=== PATIENT | female | born 1955 | race Caucasian/White ===

== ENCOUNTER 2020-08-10 23:08 | IRF | payer MEDICARE, MEDICAID, SELFPAY ==
--- NOTE | ~2020-08-10 | US_ITS ---
EXAMINATION: US carotid duplex BI DATE: 08/20/2020 14:47 INDICATION: Right carotid bruit. TECHNIQUE: Grayscale, color Doppler, and pulsed Doppler images of the cervical carotid arteries were obtained. The degree of vessel stenosis is placed in one of the following categories: normal, <50%, 5 0-69%, >=70% but less than near-occlusion, near-occlusion, or total occlusion. Note that percent sten osis relative to normal distal artery lumen diameter is indirectly measured from velocity measurement s as described by Davis, et al. Radiology 2003; 229:340-346. COMPARISON: None. FINDINGS: RIGHT: There is a graft or stent of right common carotid artery. The right common carotid artery (CCA) peak systolic velocity (PSV) is 38 cm/s. The right internal carotid artery (ICA) PSV is 146 cm/s. The righ t ICA end-diastolic velocity (EDV) is 27 cm/s. The right ICA/CCA PSV ratio is 3.9. Shadowing obscures the vessel lumen in proximal ICA. There is antegrade flow in the right vertebral artery. LEFT: The left CCA PSV is 99 cm/s. The left ICA PSV is 174 cm/s. The left ICA EDV is 37 cm/s. The left ICA/ CCA PSV ratio is 1.8. Grayscale and color Doppler images yield an estimate of >=50% diameter reductio n from plaque in the ICA. There is antegrade flow in the left vertebral artery. IMPRESSION: 1. 50-69% stenosis in the right internal carotid artery. 2. 50-69% stenosis in the left internal carotid artery. Reviewed, dictated and finalized at location A.
--- NOTE | 2020-08-10 22:59 | ADMGEN ---
This patient, Arianne Jacinto, was admitted to [facility] Room 223-02. Patient/family oriented to hospital policies and general routines including ID bracelet, bed and alarms, visiting hours, pain management, procedures, bathroom and other care routines, personal items, smoking policy, room service/diet, and visiting hours. Information on how to activate the Rapid Response Team has been discussed. Patient/Family are encouraged to report perceived risks to care and to ask questions if they do not understand what they are told or what they should do.
[2020-08-11 01:17] VITALS: BMI 25.4
[2020-08-11] MEDS: oxyCODONE HCL (*CRX) 5 MG TAB IR PO ×3 (05:06→21:21)
[2020-08-11 05:42] LABS: Basophils Absolute Auto 0.1 K/mm3 (0.0-0.1); Basophils Percent Auto 0.5 % (0.2-1.2); Eosinophils Absolute Auto 0.4 K/mm3 (0-0.3); Eosinophils Percent Auto 3.1 % (0-4.4); Hematocrit 31.7 % (37.0-47.0); Immature Granulocyte Absolute 0.28 K/mm3 (0.00-0.031); Immature Granulocyte Percent A 2.2 % (0-0.5); Lymphocytes Absolute Auto 2.84 K/mm3 (0.9-3.2); Mean Corpuscular HGB Conc 31.5 g/dl (32-36); Mean Corpuscular Hemoglobin 27.7 pg (26-34); Mean Corpuscular Volume 87.8 fl (80-100); Mean Platelet Volume 12.5 fl (7.4-10.4); Monocytes Absolute Auto 1.7 K/mm3 (0.1-0.6); Neutrophils Absolute Auto 7.6 K/mm3 (1.3-6.7); Neutrophils Percent Auto 59.2 % (45.5-73.1); Platelet Count Result 323 k/mm3 (150-375); Red Blood Count 3.61 M/mm3 (4.2-5.4); Red Cell Distribution Width 19.9 % (11.5-14.5); White Blood Count 12.9 K/mm3 (4.5-10.0)
[2020-08-11 05:50] LABS: Alanine Aminotransferase 40 U/L (4-35); Alkaline Phosphatase 92 U/L (38-126); Anion Gap 3 mmol/L (8-16); Aspartate Amino Transferase 51 U/L (14-36); Bilirubin,Total 0.2 mg/dL (0.2-1.3); Blood Urea Nitrogen 15 mg/dL (7-17); Carbon Dioxide 26 mmol/L (22-30); Chloride 111 mmol/L (98-107); Estimated CRCL calculation 40 ml/min; Estimated Glomerular Filt Rate > 60; Glucose 88 mg/dL (65-105); Potassium 3.6 mmol/L (3.4-5.0); Sodium 140 mmol/L (137-145)
[2020-08-11 06:00] VITALS: BP 138/61; PULSE 93; RESP 18; TEMP 36.6; O2SAT 96
[2020-08-11 06:30] LABS: Anisocytosis 1+ (NORMAL); Hypochromasia 1+ (NORMAL); Ovalocytes 1+ (NORMAL); Platelet Estimate Adequate (Adequate)
[2020-08-11] MEDS: ACETAMINOPHEN 500 MG TABLET PO ×3 (07:14→21:27)
[2020-08-11] MEDS: GABAPENTIN 300 MG CAPSULE PO ×3 (07:15→21:17)
[2020-08-11 08:57] VITALS: PULSE 93
[2020-08-11] MEDS: APIXABAN 5 MG TABLET PO ×2 (08:57→16:02)
[2020-08-11] MEDS: lisinopriL 2.5 MG TABLET PO (08:57)
[2020-08-11] MEDS: carvediloL 6.25 MG TABLET PO ×2 (08:57→16:02)
[2020-08-11] MEDS: ASPIRIN 81 MG ENTERIC TABLET PO (08:57)
[2020-08-11] MEDS: DICLOFENAC SOD 75 MG TABLET.EC PO (08:57)
[2020-08-11] MEDS: SENNA/DOCUSATE SODIUM TABLET 1 TAB PO ×2 (08:58→16:02)
[2020-08-11] MEDS: DULoxetine HCL 30 MG CAPSULE.DR PO (09:08)
[2020-08-11 12:00] VITALS: BMI 25.4
--- NOTE | 2020-08-11 13:32 | WPDREHABHP ---
H&P: HPI History of Present Illness Date/Time: 08/11/20 13:32 Chief Complaint: L aka Narrative: HISTORY OF PRESENT ILLNESS: The patient's primary rehab impairment category is amputation lower extremity The etiologic diagnosis is critical left limb ischemia I saw this patient [id number] on 08/11/2020 The patient is a 64-year-old female with past medical history of hypertension, hyperlipidemia, chronic kidney disease, coronary artery disease, congestive heart failure, prior CVA, peripheral vascular disease, peripheral neuropathy, claudication, bilateral carotid stenosis, CSF leak, TIA, [place], hepatitis C, and Takayasu arteritis who presented to [facility] on 08/05/2020 with critical limb ischemia. On arrival the patient had no sensation to her left leg below the knee. Left foot was cold and mottled. CTA showed multiple occlusions on the left lower extremity. CT showed ischemic colitis. Patient underwent a left above knee amputation on 08/05/2020y Vascular Postoperatively the patient experienced elevated troponins, acute postop pain, acute blood loss anemia, acute respiratory failure, chronic ischemic colitis, and hypocalcemia. Cardiology determined the elevated troponins were due to demand ischemia in the setting of dehydration and anemia. She was to continue on her Coreg. A TTE showed no changes. Acute postop pain was managed with or oral analgesics. Acute blood loss with stable the hemoglobin of 9. Acute respiratory failure resolved following administration of Lasix and was on 1 L oxygen but was able to wean off. General surgery was consulted for ischemic colitis and recommended conservative management with IV antibiotics and fluid she had completed a course of cefepime and Flagyl and IV antibiotics were discontinued. Patient will be discharged to rehab on Eliquis and aspirin for prophylaxis and to remain on this medications. The patient was on isolation bars for MRSA in 2017 for the LLENayely Knox nurse practitioner of vascular department phones #[phone] Therapy was initiated at the acute care facility and the patient transferred to us from [facility] on 08/10/2020 FALLS OR SURGERIES: The patient has had major surgeries ( left AKA)in the 100 days prior to admission. the patient has had 2 falls in the last 6 months. The patient has not had falls which incurred injury in the past year. PRIOR LEVEL OF FUNCTION: Eating was [INDEPENDENT] Oral Care was [INDEPENDENT] Toileting Hygiene was [INDEPENDENT] Shower/Bathing was [INDEPENDENT] Upper Body Dressing was [INDEPENDENT] Lower Body Dressing was [INDEPENDENT] Donning/Statham Footwear was [INDEPENDENT] Rolling Left and Right was [INDEPENDENT] Sit to Lying was [INDEPENDENT] Lying to Sitting was [INDEPENDENT] Sit to Stand was [INDEPENDENT] Bed to Chair Transfers was [INDEPENDENT] Toilet Transfers was [INDEPENDENT] Walking was [INDEPENDENT] [>500 feet] with [NO DEVICE] Wheelchair Mobility was [NOT APPLICABLE PRIOR TO ADMISSION] Stairs were [INDEPENDENT] CURRENT LEVEL OF FUNCTION: Eating was setup or clean-up assistance Oral Care was partial to moderate assist Toileting Hygiene was partial to moderate assist Shower/Bathing was partial to moderate assist Upper Body Dressing was partial to moderate assist Lower Body Dressing was partial to moderate assist Donning/Statham Footwear was partial to moderate assist Rolling Left and Right was supervision or touching assist Sit to Lying was supervision or touching assist Lying to Sitting was partial to moderate assist Sit to Stand was partial to moderate assist Bed to Chair Transfers were partial to moderate assist Toilet Transfers were partial to moderate assist Walking was 9 ft with a rolling and partial to moderate assistances Wheelchair Mobility was not tested Stairs were not tested GOALS: Our therapists will evaluate the patient and establish the goals. However, upon pr
[2020-08-11 14:00] VITALS: BP 131/50; PULSE 89; RESP 18; TEMP 36.2; O2SAT 98
--- NOTE | 2020-08-11 14:09 | PCNSR ---
On 08/11/20, the student, Rosa M Palomares, provided care and completed [facility] documentation on this patient. I have reviewed the student's documentation and agree with the findings.
[2020-08-11 16:02] VITALS: PULSE 89
[2020-08-11 20:50] VITALS: BP 129/56; PULSE 87; RESP 16; TEMP 36.2; O2SAT 96
[2020-08-11] MEDS: ATORVASTATIN 40 MG TABLET PO (21:14)
[2020-08-11] MEDS: cilostazoL 100 MG TABLET PO (21:17)
[2020-08-12] VITALS (9 sets, daily range): BP systolic 99–133; BP diastolic 54–67; PULSE 77–90; RESP 16–20; TEMP 36.2–36.5; O2SAT 97–99
[2020-08-12] MEDS: GABAPENTIN 300 MG CAPSULE PO ×3 (06:06→20:51)
[2020-08-12] MEDS: oxyCODONE HCL (*CRX) 5 MG TAB IR PO ×3 (06:34→18:54)
[2020-08-12] MEDS: ACETAMINOPHEN 500 MG TABLET PO ×3 (06:35→18:55)
[2020-08-12] MEDS: CHOLECALCIFEROL 1,000 UNITS TABLET 1000 UNITS PO (08:33)
[2020-08-12] MEDS: carvediloL 6.25 MG TABLET PO ×2 (08:33→17:14)
[2020-08-12] MEDS: ASPIRIN 81 MG ENTERIC TABLET PO (08:33)
[2020-08-12] MEDS: APIXABAN 5 MG TABLET PO ×2 (08:33→17:14)
[2020-08-12] MEDS: lisinopriL 2.5 MG TABLET PO (08:33)
[2020-08-12] MEDS: DULoxetine HCL 30 MG CAPSULE.DR PO (08:34)
[2020-08-12] MEDS: SENNA/DOCUSATE SODIUM TABLET 1 TAB PO ×2 (08:34→17:14)
[2020-08-12] MEDS: RANOLAZINE 500 MG TAB.ER.12H PO (08:35)
[2020-08-12] MEDS: MULTIVITAMINS THERAPEUTIC TAB (*BKC) 1 TABLET PO (08:35)
--- NOTE | 2020-08-12 12:23 | RPD ---
INDIVIDUALIZED PLAN OF CARE FOR Arianne Jacinto Brief Synthesis of Pre-Admission Screen, Post-Admission Evaluation and Therapy Evaluations: The patient presents to rehab with critical left limb ischemia. Comorbidities include status post left AKA, elevated troponin, acute postoperative pain, acute blood loss anemia, acute respiratory failure, chronic ischemic colitis, hypocalcemia, hypertension, hyperlipidemia, chronic kidney disease, coronary artery disease, congestive heart failure, peripheral vascular disease, neuropathy, claudication, bilateral carotid stenosis, TIA, myocardial infarction, hepatitis C, and Takayasu arteritis. The complexity of the patient's medical management, nursing, and therapy needs require an inpatient rehab hospital stay with a physician-led interdisciplinary team approach. The patient?s needs will be best met in an intensive program vs. at a lower level of care. The patient requires physician services for medical oversight, management of post-op complications (acute respiratory failure, acute blood loss anemia, chronic ischemic colitis, elevated troponin, hypocalcemia) in the setting of present comorbidities, and pain management. The patient requires nursing services for anticoagulation therapy, DVT prophylactics, infection protection, medication management and education, pressure relief, and wound care. The patient will be taught how to wrap the residual limb and how to monitor their skin for promotion of healing. Deficits include:ADLs, Balance, Endurance, Family Training/Education, Mobility, Pain Management, ROM, Safety, Strength, Transfers Survey Questionnaire Designer/Case Management for: Discharge Planning and Patient/Family Counseling Physical Therapy: 5 days per week for 90 minutes. Treatments may include: Therapeutic Exercise, Gait Training, Neuromuscular Re-education, Transfer Training, Community Reintegration, Bed Mobility, Patient/Family Education, Wheelchair Mobility Group Therapy/Concurrent Therapy Rationales: -Improve attention span during functional activities in a distracted environment. -Enhance problem solving and/or adequate judgment skills during functional activities in a distracted environment. -Promote increased safety awareness in a distracted environment to reduce fall risk with functional tasks, transfers, and ambulation to allow a more safe, self-sufficient return to the home environment. -Improve dynamic balance skills to promote safety and independence with functional activities in a distracted environment for maximum gain. Occupational Therapy: 5 days per week for 90 minutes. Treatments may include: Therapeutic Exercise, Therapeutic Activity, Cognitive Training, Self-Care Transfer Training, Community Reintegration, Home Management, Patient/Family Education, Wheelchair Mobility Training, Energy Conservation Training Group Therapy/Concurrent Therapy Rationales: -Allow therapist to observe and teach generalization and carry-over of skills learned in individual therapy. -Enhance problem solving and sequencing skills during therapeutic activities in a distracted environment. -Promote increased safety awareness in a realistic setting to reduce fall risk with functional tasks due to visual and verbal distractions. -Increase functional level with ADLs, ADL transfers and use of adaptive equipment through therapeutic activities with others while promoting safety to allow a more safe, self-sufficient return home. Medical Prognosis: Good Anticipated Length of Stay: 12 days Rehab Goals: Eating Goal: 06-Independent Oral Hygiene Goal: 06-Independent Toileting Hygiene Goal: 06-Independent Shower/Bathe Self Goal: 06-Independent Upper Body Dressing Goal: 06-Independent Lower Body Dressing Goal: 06-Independent Putting On/Taking Off Footwear Goal: 06-Independent Rolling Left and Right Goal: 06-Independent Sit to Lying Goal: 06-Independent Lying to Sitting on Side of Bed Goal: 06-Independent Sit to Stand Goal: 06-Independent Chair
--- NOTE | 2020-08-12 14:11 | WPDNEURORHBP ---
Subjective Date/time seen: 08/12/20 14:11 [facility] [place] [id number] Rehab History & PhysicalSigned Chief Complaint: Azra contreras The patient is a 64-year-old female with past medical history of hypertension, hyperlipidemia, chronic kidney disease, coronary artery disease, congestive heart failure, prior CVA, peripheral vascular disease, peripheral neuropathy, claudication, bilateral carotid stenosis, CSF leak, TIA, [place], hepatitis C, and Takayasu arteritis who presented to [facility] on 08/05/2020 with critical limb ischemia. On arrival the patient had no sensation to her left leg below the knee. Left foot was cold and mottled. CTA showed multiple occlusions on the left lower extremity. CT showed ischemic colitis. Patient underwent a left above knee amputation on 08/05/2020y Vascular Postoperatively the patient experienced elevated troponins, acute postop pain, acute blood loss anemia, acute respiratory failure, chronic ischemic colitis, and hypocalcemia. Cardiology determined the elevated troponins were due to demand ischemia in the setting of dehydration and anemia. She was to continue on her Coreg. A TTE showed no changes. Acute postop pain was managed with or oral analgesics. Acute blood loss was stable (hgb 9). Acute respiratory failure resolved following administration of Lasix and on 1 L oxygen but was able to wean off oxygen. General surgery was consulted for ischemic colitis and recommended conservative management with IV antibiotics and fluid She completed a course of cefepime and Flagyl and IV antibiotics were discontinued. Patient will be discharged to rehab on Eliquis and aspirin for prophylaxis and to remain on this medications. The patient was on isolation for MRSA in 2017 for the LLENayely Knox nurse practitioner of vascular department phones #[phone] Patient complains of pain but has been asleep numerous times throughout the day. Review of Systems Review of Systems: All systems reviewed & are unremarkable except as noted in HPI and below Functional Status Ambulation Ability Ability to Ambulate 10 Feet: Contact Guard Ambulation Assistive Devices: Walker, Wheeled Exam Narrative: Exam Narrative: Patient is alert and oriented x3. Speech is fluent. Heart rate and rhythm is regular. Lungs are clear to auscultation. Abdomen is soft nontender. Left stump reveals serosanguineous drainage. Objective Data Vital Signs Vital Signs: Vital Signs - 24 hr 08/11/20 16:02 08/11/20 20:50 08/12/20 06:00 Temperature 36.2 C L 36.5 C Pulse Rate 89 87 90 Respiratory Rate 16 16 Blood Pressure 129/56 L 102/61 Pulse Oximetry 96 97 08/12/20 08:00 08/12/20 08:33 08/12/20 13:39 Temperature 36.4 C L Pulse Rate 86 90 89 Respiratory Rate 20 16 Blood Pressure 99/54 L Pulse Oximetry 97 99 Intake/Output Intake/Output: Intake & Output 08/09/20 08/10/20 08/11/20 08/12/20 23:59 23:59 23:59 23:59 Intake Total 480 960 Balance 480 960 Meds/Results Medications: Active Medications Generic Name Dose Route Start Last Admin Trade Name Freq PRN Reason Stop Dose Admin Acetaminophen 500 mg 08/11/20 12:02 08/12/20 13:25 Acetaminophen 500 Mg Tablet PO 500 mg Q6H PRN Administration Mild Pain (1-3) or Fever Apixaban 5 mg 08/11/20 09:00 08/12/20 08:33 Apixaban 5 Mg Tablet PO 5 mg BID AJ Administration Aspirin 81 mg 08/11/20 09:00 08/12/20 08:33 Aspirin 81 Mg Enteric Tablet PO 81 mg QAM AJ Administration Atorvastatin Calcium 40 mg 08/11/20 21:00 08/11/20 21:14 Atorvastatin 40 Mg Tablet PO 40 mg HS AJ Administration Carvedilol 6.25 mg 08/11/20 17:00 08/12/20 08:33 Carvedilol 6.25 Mg Tablet PO 6.25 mg BID AJ Administration Cilostazol 100 mg 08/11/20 21:00 08/11/20 21:17 Cilostazol 100 Mg Tablet PO 100 mg HS AJ Administration Diclofenac Sodium 75 mg 08/11/20 12:03 Diclofenac Sod 75 Mg Ta
--- NOTE | 2020-08-12 15:04 | PCOTNOTE ---
Ms. Jacinto was evaluated for a tub transfer bench on 08/12/20 by this occupational therapist. The tub transfer bench will resolve that patient?s self-care limitations and will be used for ADL?s within the home. The patient is unable to step over edge of tub safely due to diagnosis of new LT above knee amputation complicated by h/o CVA, PVD, blind in LT eye, bilateral UE and LE neuropathy, CAD, DC, and chronic kidney disease. She is unable to tolerate standing while maintaining balance for completion of bathing. The patient can safely use the tub transfer bench and exhibits good understanding of safety with assisting patient with use. The tub transfer bench will allow for safety and independence with bathing in the patient's home.
[2020-08-12] MEDS: ATORVASTATIN 40 MG TABLET PO (20:51)
[2020-08-12] MEDS: cilostazoL 100 MG TABLET PO (20:51)
[2020-08-12] MEDS: DICLOFENAC SOD 75 MG TABLET.EC PO (20:55)
[2020-08-13 05:36] VITALS: BP 124/55; PULSE 77; RESP 16; TEMP 36.1; O2SAT 97
[2020-08-13] MEDS: GABAPENTIN 300 MG CAPSULE PO ×3 (06:02→20:24)
[2020-08-13 08:21] VITALS: PULSE 77
[2020-08-13] MEDS: APIXABAN 5 MG TABLET PO ×2 (08:21→17:53)
[2020-08-13] MEDS: carvediloL 6.25 MG TABLET PO ×2 (08:21→17:53)
[2020-08-13] MEDS: lisinopriL 2.5 MG TABLET PO (08:21)
[2020-08-13] MEDS: ASPIRIN 81 MG ENTERIC TABLET PO (08:21)
[2020-08-13] MEDS: CHOLECALCIFEROL 1,000 UNITS TABLET 1000 UNITS PO (08:21)
[2020-08-13] MEDS: SENNA/DOCUSATE SODIUM TABLET 1 TAB PO ×2 (08:21→17:52)
[2020-08-13] MEDS: RANOLAZINE 500 MG TAB.ER.12H PO (08:22)
[2020-08-13] MEDS: DULoxetine HCL 30 MG CAPSULE.DR PO (08:22)
[2020-08-13] MEDS: oxyCODONE HCL (*CRX) 5 MG TAB IR PO ×3 (08:22→20:18)
[2020-08-13] MEDS: MULTIVITAMINS THERAPEUTIC TAB (*BKC) 1 TABLET PO (08:22)
--- NOTE | 2020-08-13 09:10 | WPDNEURORHBP ---
Subjective Date/time seen: 08/13/20 09:10 Interval history: Chief Complaint: Azra contreras The patient is a 64-year-old female with past medical history of hypertension, hyperlipidemia, chronic kidney disease, coronary artery disease, congestive heart failure, prior CVA, peripheral vascular disease, peripheral neuropathy, claudication, bilateral carotid stenosis, CSF leak, TIA, [place], hepatitis C, and Takayasu arteritis who presented to [facility] on 08/05/2020 with critical limb ischemia. On arrival the patient had no sensation to her left leg below the knee. Left foot was cold and mottled. CTA showed multiple occlusions on the left lower extremity. CT showed ischemic colitis. Patient underwent a left above knee amputation on 08/05/2020y Vascular Postoperatively the patient experienced elevated troponins, acute postop pain, acute blood loss anemia, acute respiratory failure, chronic ischemic colitis, and hypocalcemia. Cardiology determined the elevated troponins were due to demand ischemia in the setting of dehydration and anemia. She was to continue on her Coreg. A TTE showed no changes. Acute postop pain was managed with or oral analgesics. Acute blood loss was stable (hgb 9). Acute respiratory failure resolved following administration of Lasix and on 1 L oxygen but was able to wean off oxygen. General surgery was consulted for ischemic colitis and recommended conservative management with IV antibiotics and fluid She completed a course of cefepime and Flagyl and IV antibiotics were discontinued. Patient will be discharged to rehab on Eliquis and aspirin for prophylaxis and to remain on this medications. The patient was on isolation for MRSA in 2017 for the LLENayely Knox nurse practitioner of vascular department phones #[phone] Arianne is proud of her accomplishments yesterday. Patient walked approximately 40 ft. Patient continues to complain of incisional pain and stump pain. Review of Systems Review of Systems: All systems reviewed & are unremarkable except as noted in HPI and below Functional Status Ambulation Ability Ability to Ambulate 10 Feet: Contact Guard Ambulation Assistive Devices: Walker, Wheeled Exam Narrative: Exam Narrative: Patient is alert and oriented x3. Speech is fluent. Heart rate and rhythm is regular. Lungs are clear to auscultation. Abdomen is soft nontender. Left stump reveals serosanguineous drainage. Edema is decreasing patient allows examiner to touch stump without pain today Objective Data Vital Signs Vital Signs: Vital Signs - 24 hr 08/12/20 13:39 08/12/20 17:12 08/12/20 17:14 Temperature 36.4 C L Pulse Rate 89 89 Respiratory Rate 16 Blood Pressure 99/54 L 110/64 Pulse Oximetry 99 08/12/20 18:55 08/12/20 20:00 08/12/20 21:29 Temperature 36.4 C L 36.2 C L Pulse Rate 77 77 Respiratory Rate 16 16 Blood Pressure 133/67 Pulse Oximetry 98 98 08/13/20 05:36 08/13/20 08:21 Temperature 36.1 C L Pulse Rate 77 77 Respiratory Rate 16 Blood Pressure 124/55 L Pulse Oximetry 97 Intake/Output Intake/Output: Intake & Output 08/10/20 08/11/20 08/12/20 08/13/20 23:59 23:59 23:59 23:59 Intake Total 480 1440 480 Balance 480 1440 480 Meds/Results Medications: Active Medications Generic Name Dose Route Start Last Admin Trade Name Freq PRN Reason Stop Dose Admin Acetaminophen 500 mg 08/11/20 12:02 08/12/20 18:55 Acetaminophen 500 Mg Tablet PO 500 mg Q6H PRN Administration Mild Pain (1-3) or Fever Apixaban 5 mg 08/11/20 09:00 08/13/20 08:21 Apixaban 5 Mg Tablet PO 5 mg BID AJ Administration Aspirin 81 mg 08/11/20 09:00 08/13/20 08:21 Aspirin 81 Mg Enteric Tablet PO 81 mg QAM AJ Administration Atorvastatin Calcium 40 mg 08/11/20 21:00 08/12/20 20:51 Atorvastatin 40 Mg Tablet PO 40 mg HS AJ Administration Carvedilol 6.25 mg 08/11/20 17:00 08/13/20 08:21 Carvedilol 6.25 Mg Tablet PO 6
[2020-08-13 14:00] VITALS: BP 118/53; PULSE 80; RESP 18; TEMP 36; O2SAT 95
[2020-08-13 17:53] VITALS: PULSE 80
[2020-08-13 20:00] VITALS: PULSE 80; RESP 18; O2SAT 95
[2020-08-13] MEDS: ATORVASTATIN 40 MG TABLET PO (20:18)
[2020-08-13] MEDS: cilostazoL 100 MG TABLET PO (20:18)
[2020-08-13] MEDS: ACETAMINOPHEN 500 MG TABLET PO (20:19)
[2020-08-13 21:46] VITALS: BP 114/57; PULSE 81; RESP 18; TEMP 37.1; O2SAT 98
[2020-08-14] MEDS: oxyCODONE HCL (*CRX) 5 MG TAB IR PO ×3 (04:48→21:07)
[2020-08-14] MEDS: GABAPENTIN 300 MG CAPSULE PO ×3 (05:15→21:10)
[2020-08-14 05:39] VITALS: BP 111/68; PULSE 89; RESP 18; TEMP 36.5; O2SAT 97
--- NOTE | 2020-08-14 08:33 | WPDNEURORHBP ---
Subjective Date/time seen: 08/14/20 08:33 Interval history: Chief Complaint: Azra contreras The patient is a 64-year-old female with past medical history of hypertension, hyperlipidemia, chronic kidney disease, coronary artery disease, congestive heart failure, prior CVA, peripheral vascular disease, peripheral neuropathy, claudication, bilateral carotid stenosis, CSF leak, TIA, [place], hepatitis C, and Takayasu arteritis who presented to [facility] on 08/05/2020 with critical limb ischemia. On arrival the patient had no sensation to her left leg below the knee. Left foot was cold and mottled. CTA showed multiple occlusions on the left lower extremity. CT showed ischemic colitis. Patient underwent a left above knee amputation on 08/05/2020y Vascular Postoperatively the patient experienced elevated troponins, acute postop pain, acute blood loss anemia, acute respiratory failure, chronic ischemic colitis, and hypocalcemia. Cardiology determined the elevated troponins were due to demand ischemia in the setting of dehydration and anemia. She was to continue on her Coreg. A TTE showed no changes. Acute postop pain was managed with or oral analgesics. Acute blood loss was stable (hgb 9). Acute respiratory failure resolved following administration of Lasix and on 1 L oxygen but was able to wean off oxygen. General surgery was consulted for ischemic colitis and recommended conservative management with IV antibiotics and fluid She completed a course of cefepime and Flagyl and IV antibiotics were discontinued. Patient will be discharged to rehab on Eliquis and aspirin for prophylaxis and to remain on this medications. The patient was on isolation for MRSA in 2017 for the LLENayely Knox nurse practitioner of vascular department phones #[phone] Patient continues to complain of incisional pain and stump pain. Arianne walked 50 feet yesterday. Review of Systems Review of Systems: All systems reviewed & are unremarkable except as noted in HPI and below Functional Status Ambulation Ability Ability to Ambulate 10 Feet: Minimum Assistance X 1 Ability to Ambulate 50 Feet With 2 Turns: Minimum Assistance X 1 Ambulation Assistive Devices: Walker, Wheeled Transfers Ability Ability to Transfer In/Out of Chair: Contact Guard Exam Narrative: Exam Narrative: Patient is alert and oriented x3. Speech is fluent. Heart rate and rhythm is regular. Lungs are clear to auscultation. Abdomen is soft nontender. Ampushield is on. Incision is not viewed today. Objective Data Vital Signs Vital Signs: Vital Signs - 24 hr 08/13/20 14:00 08/13/20 17:53 08/13/20 20:00 Temperature 36.0 C L Pulse Rate 80 80 80 Respiratory Rate 18 18 Blood Pressure 118/53 L Pulse Oximetry 95 95 08/13/20 21:46 08/14/20 05:39 Temperature 37.1 C 36.5 C Pulse Rate 81 89 Respiratory Rate 18 18 Blood Pressure 114/57 L 111/68 Pulse Oximetry 98 97 Intake/Output Intake/Output: Intake & Output 08/11/20 08/12/20 08/13/20 08/14/20 23:59 23:59 23:59 23:59 Intake Total 480 1440 960 Balance 480 1440 960 Meds/Results Medications: Active Medications Generic Name Dose Route Start Last Admin Trade Name Freq PRN Reason Stop Dose Admin Acetaminophen 500 mg 08/11/20 12:02 08/13/20 20:19 Acetaminophen 500 Mg Tablet PO 500 mg Q6H PRN Administration Mild Pain (1-3) or Fever Apixaban 5 mg 08/11/20 09:00 08/13/20 17:53 Apixaban 5 Mg Tablet PO 5 mg BID AJ Administration Aspirin 81 mg 08/11/20 09:00 08/13/20 08:21 Aspirin 81 Mg Enteric Tablet PO 81 mg QAM AJ Administration Atorvastatin Calcium 40 mg 08/11/20 21:00 08/13/20 20:18 Atorvastatin 40 Mg Tablet PO 40 mg HS AJ Administration Carvedilol 6.25 mg 08/11/20 17:00 08/13/20 17:53 Carvedilol 6.25 Mg Tablet PO 6.25 mg BID AJ Administration Cilostazol 100 mg 08/11/20 21:00 08/13/20 20:18 Cilostazol 100 Mg Tablet PO 100 mg HS AJ Admi
[2020-08-14] MEDS: carvediloL 6.25 MG TABLET PO ×2 (08:46→17:57)
[2020-08-14] MEDS: ASPIRIN 81 MG ENTERIC TABLET PO (08:46)
[2020-08-14] MEDS: DULoxetine HCL 30 MG CAPSULE.DR PO (08:46)
[2020-08-14] MEDS: lisinopriL 2.5 MG TABLET PO (08:46)
[2020-08-14] MEDS: CHOLECALCIFEROL 1,000 UNITS TABLET 1000 UNITS PO (08:46)
[2020-08-14] MEDS: MULTIVITAMINS THERAPEUTIC TAB (*BKC) 1 TABLET PO (08:46)
[2020-08-14] MEDS: APIXABAN 5 MG TABLET PO ×2 (08:47→17:57)
[2020-08-14] MEDS: RANOLAZINE 500 MG TAB.ER.12H PO (08:47)
[2020-08-14] MEDS: SENNA/DOCUSATE SODIUM TABLET 1 TAB PO ×2 (08:47→17:57)
[2020-08-14 14:00] VITALS: BP 133/50; PULSE 84; RESP 18; TEMP 36.3; O2SAT 98
[2020-08-14 17:57] VITALS: PULSE 84
[2020-08-14 21:05] VITALS: BP 133/56; PULSE 80; RESP 16; TEMP 36.2; O2SAT 99
[2020-08-14] MEDS: ACETAMINOPHEN 500 MG TABLET PO (21:08)
[2020-08-14] MEDS: cilostazoL 100 MG TABLET PO (21:09)
[2020-08-14] MEDS: ATORVASTATIN 40 MG TABLET PO (21:10)
[2020-08-15] VITALS (8 sets, daily range): BP systolic 110–150; BP diastolic 54–63; PULSE 76–83; RESP 16; TEMP 36–36.6; O2SAT 95–98
[2020-08-15] MEDS: GABAPENTIN 300 MG CAPSULE PO ×3 (06:06→21:34)
[2020-08-15] MEDS: oxyCODONE HCL (*CRX) 5 MG TAB IR PO ×4 (06:12→21:57)
[2020-08-15] MEDS: ACETAMINOPHEN 500 MG TABLET PO ×3 (06:13→18:07)
[2020-08-15] MEDS: ASPIRIN 81 MG ENTERIC TABLET PO (08:21)
[2020-08-15] MEDS: CHOLECALCIFEROL 1,000 UNITS TABLET 1000 UNITS PO (08:21)
[2020-08-15] MEDS: APIXABAN 5 MG TABLET PO ×2 (08:21→17:14)
[2020-08-15] MEDS: lisinopriL 2.5 MG TABLET PO (08:22)
[2020-08-15] MEDS: MULTIVITAMINS THERAPEUTIC TAB (*BKC) 1 TABLET PO (08:22)
[2020-08-15] MEDS: DULoxetine HCL 30 MG CAPSULE.DR PO (08:22)
[2020-08-15] MEDS: SENNA/DOCUSATE SODIUM TABLET 1 TAB PO ×2 (08:22→17:14)
[2020-08-15] MEDS: RANOLAZINE 500 MG TAB.ER.12H PO (08:22)
[2020-08-15] MEDS: carvediloL 6.25 MG TABLET PO ×2 (08:22→17:14)
--- NOTE | 2020-08-15 09:27 | PCPTNOTE ---
Arianne Jacinto was evaluated for a wheeled walker on 08/15/2020 by this physical therapist mail handler assistant. The wheeled walker will resolve patient's mobility limitations and will be used for ADL's within the home. The patient can safely use the wheeled walker. ?The wheeled walker will resolve the patient?s mobility deficits, including decreased balance, endurance, strength, and non weight bearing on Left Lower Extremity. Chiara Paniagua, IMAGE PROCESSING ENGINEER
--- NOTE | 2020-08-15 09:39 | PCPTNOTE ---
Chiara Paniagua PTA completed an inpatient rehab wheelchair evaluation on Arianne Jacinto on 08/15/2020. The patient is unable to safely and independently ambulate household distances due to their current impairments. Their diagnosis is L AKA and their impairments include decreased strength, decreased endurance, decreased range of motion, decreased balance, lower extremity weakness. Arianne's weight bearing status is non weight-bearing on LEFT lower leg. The patient demonstrates significant functional mobility limitations that impair their ability to participate in mobility-related activities of daily living (MRADLs), including toileting, feeding, dressing, grooming, and bathing in the customary locations in the home. These limitations cannot be sufficiently resolved by the use of an appropriately fitted cane or walker. It is recommended that the patient utilize a wheelchair for functional mobility within the home in order to facilitate optimal safety, independence and participation in all MRADL's and adequately access their home environment on a regular basis. The patient's home provides adequate access between rooms, maneuvering space, and surfaces to accommodate the recommended wheelchair. The use of a wheelchair for functional mobility is strongly recommended and the patient is receptive to using the wheelchair. The use of this wheelchair will significantly improve the patient's ability to participate in MRADLS and the patient will use it on a regular basis in the home. This will facilitate optimal safety, independence, and participation. The patient has demonstrated sufficient physical and mental capabilities needed to safely propel a manual wheelchair that is provided in the home during a typical day. Recommended Wheelchair Frame: STANDARD Recommended Wheelchair Size: 18 X 18 Recommended Wheelchair Cushion: STANDARD Wheelchair Leg Recommendations: LEFT RESIDUAL LIMB SUPPORT LEG REST, RIGHT SWING AWAY LEG REST -Anti-tippers are recommended due to patient demonstrating increased risk for falls. They would benefit from anti-tippers with added safety and stabilization. -Adjustable arm height is recommended because the patient requires an arm height that is different than that which is available using non-adjustable arms. The patient spends at least 2 hours per day in the wheelchair. Chiara Paniagua PTA 08/15/20 Evaluating Therapist Date I agree with and certify that the above recommendation is medically necessary. Referring Physician Date I agree with and certify that the above recommendation is medically necessary. Referring Physician Date
--- NOTE | 2020-08-15 10:14 | WPDNEURORHBP ---
Subjective Date/time seen: 08/15/20 10:14 Interval history: Chief Complaint: Azra contreras The patient is a 64-year-old female with past medical history of hypertension, hyperlipidemia, chronic kidney disease, coronary artery disease, congestive heart failure, prior CVA, peripheral vascular disease, peripheral neuropathy, claudication, bilateral carotid stenosis, CSF leak, TIA, [place], hepatitis C, and Takayasu arteritis who presented to [facility] on 08/05/2020 with critical limb ischemia. On arrival the patient had no sensation to her left leg below the knee. Left foot was cold and mottled. CTA showed multiple occlusions on the left lower extremity. CT showed ischemic colitis. Patient underwent a left above knee amputation on 08/05/2020y Vascular Postoperatively the patient experienced elevated troponins, acute postop pain, acute blood loss anemia, acute respiratory failure, chronic ischemic colitis, and hypocalcemia. Cardiology determined the elevated troponins were due to demand ischemia in the setting of dehydration and anemia. She was to continue on her Coreg. A TTE showed no changes. Acute postop pain was managed with or oral analgesics. Acute blood loss was stable (hgb 9). Acute respiratory failure resolved following administration of Lasix and on 1 L oxygen but was able to wean off oxygen. General surgery was consulted for ischemic colitis and recommended conservative management with IV antibiotics and fluid She completed a course of cefepime and Flagyl and IV antibiotics were discontinued. Patient will be discharged to rehab on Eliquis and aspirin for prophylaxis and to remain on this medications. The patient was on isolation for MRSA in 2017 for the LLENayely Knox nurse practitioner of vascular department phones #[phone] Patient continues to complain of incisional pain and stump pain. Stump did not fit into ampu-shield today. Review of Systems Review of Systems: All systems reviewed & are unremarkable except as noted in HPI and below Functional Status Ambulation Ability Ability to Ambulate 10 Feet: Contact Guard Ability to Ambulate 50 Feet With 2 Turns: Minimum Assistance X 1 Ambulation Assistive Devices: Walker, Wheeled Transfers Ability Ability to Transfer In/Out of Chair: Contact Guard Exam Narrative: Exam Narrative: Patient is alert and oriented x3. Speech is fluent. Heart rate and rhythm is regular. Lungs are clear to auscultation. Abdomen is soft nontender. Incision reveals two areas of minimal serosanguineous drainage. Edema fluctuates. Patient is seen in gym, ambulating with walker. Patient doing well . Balance is good. Objective Data Vital Signs Vital Signs: Vital Signs - 24 hr 08/14/20 14:00 08/14/20 17:57 08/14/20 21:05 Temperature 36.3 C L 36.2 C L Pulse Rate 84 84 80 Respiratory Rate 18 16 Blood Pressure 133/50 L 133/56 L Pulse Oximetry 98 99 08/15/20 06:00 08/15/20 08:00 08/15/20 08:22 Temperature 36.6 C Pulse Rate 83 83 83 Respiratory Rate 16 16 Blood Pressure 150/61 H Pulse Oximetry 96 96 Intake/Output Intake/Output: Intake & Output 08/12/20 08/13/20 08/14/20 08/15/20 23:59 23:59 23:59 23:59 Intake Total 1440 960 960 Balance 1440 960 960 Meds/Results Medications: Active Medications Generic Name Dose Route Start Last Admin Trade Name Freq PRN Reason Stop Dose Admin Acetaminophen 500 mg 08/11/20 12:02 08/15/20 06:13 Acetaminophen 500 Mg Tablet PO 500 mg Q6H PRN Administration Mild Pain (1-3) or Fever Apixaban 5 mg 08/11/20 09:00 08/15/20 08:21 Apixaban 5 Mg Tablet PO 5 mg BID AJ Administration Aspirin 81 mg 08/11/20 09:00 08/15/20 08:21 Aspirin 81 Mg Enteric Tablet PO 81 mg QAM AJ Administration Atorvastatin Calcium 40 mg 08/11/20 21:00 08/14/20 21:10 Atorvastatin 40 Mg Tablet PO 40 mg HS AJ Administration Carvedilol 6.25 mg 08/11/20 17:00 08/15/20 08:22 Carvedilol 6.25 Mg Tablet
[2020-08-15] MEDS: ATORVASTATIN 40 MG TABLET PO (20:04)
[2020-08-15] MEDS: cilostazoL 100 MG TABLET PO (20:04)
[2020-08-16 05:46] VITALS: BP 158/59; PULSE 92; RESP 16; TEMP 36.4; O2SAT 96
[2020-08-16] MEDS: GABAPENTIN 300 MG CAPSULE PO ×3 (06:09→20:13)
[2020-08-16] MEDS: oxyCODONE HCL (*CRX) 5 MG TAB IR PO ×3 (07:04→20:11)
[2020-08-16 08:44] VITALS: PULSE 92
[2020-08-16] MEDS: carvediloL 6.25 MG TABLET PO ×2 (08:44→17:24)
[2020-08-16] MEDS: lisinopriL 2.5 MG TABLET PO (08:44)
[2020-08-16] MEDS: ASPIRIN 81 MG ENTERIC TABLET PO (08:44)
[2020-08-16] MEDS: APIXABAN 5 MG TABLET PO ×2 (08:44→17:25)
[2020-08-16] MEDS: DULoxetine HCL 30 MG CAPSULE.DR PO (08:44)
[2020-08-16] MEDS: RANOLAZINE 500 MG TAB.ER.12H PO (08:44)
[2020-08-16] MEDS: SENNA/DOCUSATE SODIUM TABLET 1 TAB PO ×2 (08:44→17:25)
[2020-08-16] MEDS: MULTIVITAMINS THERAPEUTIC TAB (*BKC) 1 TABLET PO (08:44)
[2020-08-16] MEDS: CHOLECALCIFEROL 1,000 UNITS TABLET 1000 UNITS PO (08:45)
[2020-08-16] MEDS: ACETAMINOPHEN 500 MG TABLET PO (11:11)
[2020-08-16 14:00] VITALS: BP 133/72; PULSE 78; RESP 16; TEMP 36.1; O2SAT 99
--- NOTE | 2020-08-16 14:20 | WPDNEURORHBP ---
Subjective Date/time seen: 08/16/20 14:20 Interval history: Chief Complaint: Azra contreras The patient is a 64-year-old female with past medical history of hypertension, hyperlipidemia, chronic kidney disease, coronary artery disease, congestive heart failure, prior CVA, peripheral vascular disease, peripheral neuropathy, claudication, bilateral carotid stenosis, CSF leak, TIA, [place], hepatitis C, and Takayasu arteritis who presented to [facility] on 08/05/2020 with critical limb ischemia. On arrival the patient had no sensation to her left leg below the knee. Left foot was cold and mottled. CTA showed multiple occlusions on the left lower extremity. CT showed ischemic colitis. Patient underwent a left above knee amputation on 08/05/2020y Vascular Postoperatively the patient experienced elevated troponins, acute postop pain, acute blood loss anemia, acute respiratory failure, chronic ischemic colitis, and hypocalcemia. Cardiology determined the elevated troponins were due to demand ischemia in the setting of dehydration and anemia. She was to continue on her Coreg. A TTE showed no changes. Acute postop pain was managed with or oral analgesics. Acute blood loss was stable (hgb 9). Acute respiratory failure resolved following administration of Lasix and on 1 L oxygen but was able to wean off oxygen. General surgery was consulted for ischemic colitis and recommended conservative management with IV antibiotics and fluid She completed a course of cefepime and Flagyl and IV antibiotics were discontinued. Patient will be discharged to rehab on Eliquis and aspirin for prophylaxis and to remain on this medications. The patient was on isolation for MRSA in 2017 for the LLENayely Knox nurse practitioner of vascular department phones #[phone] Patient continues to complain of incisional pain and stump pain. Review of Systems Review of Systems: All systems reviewed & are unremarkable except as noted in HPI and below Functional Status Ambulation Ability Ability to Ambulate 10 Feet: Contact Guard Ability to Ambulate 50 Feet With 2 Turns: Minimum Assistance X 1 Ambulation Assistive Devices: Walker, Wheeled Transfers Ability Ability to Transfer In/Out of Chair: Contact Guard Exam Narrative: Exam Narrative: Patient is alert and oriented x3. Speech is fluent. Heart rate and rhythm is regular. Lungs are clear to auscultation. Abdomen is soft nontender. Incision reveals two areas of minimal serosanguineous drainage similar to yesterday.. Edema fluctuates. Patient is seen in gym, ambulating with walker. Patient doing well . Balance is good. Objective Data Vital Signs Vital Signs: Vital Signs - 24 hr 08/15/20 17:14 08/15/20 18:07 08/15/20 21:35 Temperature 36.6 C 36.0 C L Pulse Rate 76 82 Respiratory Rate 16 Blood Pressure 129/63 Pulse Oximetry 95 08/16/20 05:46 08/16/20 08:44 Temperature 36.4 C Pulse Rate 92 92 Respiratory Rate 16 Blood Pressure 158/59 H Pulse Oximetry 96 Intake/Output Intake/Output: Intake & Output 08/13/20 08/14/20 08/15/20 08/16/20 23:59 23:59 23:59 23:59 Intake Total 465 192 7219 360 Balance 654 149 0402 360 Meds/Results Medications: Active Medications Generic Name Dose Route Start Last Admin Trade Name Freq PRN Reason Stop Dose Admin Acetaminophen 500 mg 08/11/20 12:02 08/16/20 11:11 Acetaminophen 500 Mg Tablet PO 500 mg Q6H PRN Administration Mild Pain (1-3) or Fever Apixaban 5 mg 08/11/20 09:00 08/16/20 08:44 Apixaban 5 Mg Tablet PO 5 mg BID AJ Administration Aspirin 81 mg 08/11/20 09:00 08/16/20 08:44 Aspirin 81 Mg Enteric Tablet PO 81 mg QAM AJ Administration Atorvastatin Calcium 40 mg 08/11/20 21:00 08/15/20 20:04 Atorvastatin 40 Mg Tablet PO 40 mg HS AJ Administration Carvedilol 6.25 mg 08/11/20 17:00 08/16/20 08:44 Carvedilol 6.25 Mg Tablet PO 6.25 mg BID AJ Administration Cilostazol 1
--- NOTE | 2020-08-16 14:24 | PCNFU ---
Nutrition Follow-Up Complete: Increased energy needs related to AKA as evidence by increased protein needs to promote proper wound healing. Goal: Meet estimated nutritional goals. Progress being made towards goal. Pt current nutrition is Regular diet. Last recorded weight is 58.967 kg. Bowel Motility: Last BM: 08/12 Labs Reviewed: Hgb 10.0, Hct 31.7, Alb 140, K 3.6, BUN 15, Cr .90, Glu 88 Meds Noted: Tylenol PRN, Eliquis, Aspirin, Lipitor, Coreg, Pletal, Voltaren Ec tab, Cymbalta, Gabapentin, Prinivil, Multivitamin, Oxycodone Hcl, Ranexa, Senokot tab, Vitamin D. Additional Notes: Nutrition follow up. Patient is consuming 50 to 100% of meals and reports having a good appetite. Recommend Miralax to promote bowel motility. Follow up in 7 days.
--- NOTE | 2020-08-16 14:35 | PCNSR ---
On 08/16/20, the student, Rosa M Palomares, provided care and completed [facility] documentation on this patient. I have reviewed the student's documentation and agree with the findings.
[2020-08-16 17:24] VITALS: PULSE 78
[2020-08-16 20:10] VITALS: PULSE 78; RESP 16; O2SAT 99
[2020-08-16] MEDS: cilostazoL 100 MG TABLET PO (20:13)
[2020-08-16] MEDS: ATORVASTATIN 40 MG TABLET PO (20:13)
[2020-08-16 21:57] VITALS: BP 138/78; PULSE 104; RESP 18; TEMP 36.8; O2SAT 97
[2020-08-17 06:00] VITALS: BP 131/63; PULSE 87; RESP 16; TEMP 36.6; O2SAT 96
[2020-08-17] MEDS: GABAPENTIN 300 MG CAPSULE PO ×3 (06:01→22:00)
[2020-08-17] MEDS: oxyCODONE HCL (*CRX) 5 MG TAB IR PO ×4 (08:18→22:20)
[2020-08-17 08:21] VITALS: PULSE 87
[2020-08-17] MEDS: carvediloL 6.25 MG TABLET PO ×2 (08:21→17:16)
[2020-08-17] MEDS: MULTIVITAMINS THERAPEUTIC TAB (*BKC) 1 TABLET PO (08:22)
[2020-08-17] MEDS: lisinopriL 2.5 MG TABLET PO (08:22)
[2020-08-17] MEDS: RANOLAZINE 500 MG TAB.ER.12H PO (08:22)
[2020-08-17] MEDS: ASPIRIN 81 MG ENTERIC TABLET PO (08:23)
[2020-08-17] MEDS: CHOLECALCIFEROL 1,000 UNITS TABLET 1000 UNITS PO (08:23)
[2020-08-17] MEDS: APIXABAN 5 MG TABLET PO ×2 (08:23→17:16)
[2020-08-17] MEDS: DULoxetine HCL 30 MG CAPSULE.DR PO (08:26)
[2020-08-17] MEDS: DICLOFENAC SOD 75 MG TABLET.EC PO ×2 (08:26→20:21)
[2020-08-17] MEDS: SENNA/DOCUSATE SODIUM TABLET 1 TAB PO ×2 (08:28→17:16)
[2020-08-17 14:00] VITALS: BP 137/57; PULSE 77; RESP 18; TEMP 36.3; O2SAT 96
--- NOTE | 2020-08-17 15:46 | WPDNEURORHBP ---
Subjective Date/time seen: 08/17/20 15:46 Interval history: Chief Complaint: Azra contreras The patient is a 64-year-old female with past medical history of hypertension, hyperlipidemia, chronic kidney disease, coronary artery disease, congestive heart failure, prior CVA, peripheral vascular disease, peripheral neuropathy, claudication, bilateral carotid stenosis, CSF leak, TIA, [place], hepatitis C, and Takayasu arteritis who presented to [facility] on 08/05/2020 with critical limb ischemia. On arrival the patient had no sensation to her left leg below the knee. Left foot was cold and mottled. CTA showed multiple occlusions on the left lower extremity. CT showed ischemic colitis. Patient underwent a left above knee amputation on 08/05/2020y Vascular Postoperatively the patient experienced elevated troponins, acute postop pain, acute blood loss anemia, acute respiratory failure, chronic ischemic colitis, and hypocalcemia. Cardiology determined the elevated troponins were due to demand ischemia in the setting of dehydration and anemia. She was to continue on her Coreg. A TTE showed no changes. Acute postop pain was managed with or oral analgesics. Acute blood loss was stable (hgb 9). Acute respiratory failure resolved following administration of Lasix and on 1 L oxygen but was able to wean off oxygen. General surgery was consulted for ischemic colitis and recommended conservative management with IV antibiotics and fluid She completed a course of cefepime and Flagyl and IV antibiotics were discontinued. Patient will be discharged to rehab on Eliquis and aspirin for prophylaxis and to remain on this medications. The patient was on isolation for MRSA in 2017 for the LLENayely Knox nurse practitioner of vascular department phones #[phone] Patient continues to complain of incisional pain and stump pain. Pain is lessening up. Review of Systems Review of Systems: All systems reviewed & are unremarkable except as noted in HPI and below Functional Status Ambulation Ability Ability to Ambulate 10 Feet: Standby Assistance Ability to Ambulate 50 Feet With 2 Turns: Contact Guard Ambulation Assistive Devices: Walker, Wheeled Transfers Ability Ability to Transfer In/Out of Chair: Contact Guard Exam Narrative: Exam Narrative: Patient is alert and oriented x3. Speech is fluent. Heart rate and rhythm is regular. Lungs are clear to auscultation. Abdomen is soft nontender. Incision reveals two areas of minimal serosanguineous drainage. No change. Edema fluctuates Objective Data Vital Signs Vital Signs: Vital Signs - 24 hr 08/16/20 17:24 08/16/20 20:10 08/16/20 21:57 Temperature 36.8 C Pulse Rate 78 78 104 H Respiratory Rate 16 18 Blood Pressure 138/78 Pulse Oximetry 99 97 08/17/20 06:00 08/17/20 08:21 08/17/20 14:00 Temperature 36.6 C 36.3 C L Pulse Rate 87 87 77 Respiratory Rate 16 18 Blood Pressure 131/63 137/57 L Pulse Oximetry 96 96 Intake/Output Intake/Output: Intake & Output 08/14/20 08/15/20 08/16/20 08/17/20 23:59 23:59 23:59 23:59 Intake Total 960 1080 1320 480 Balance 960 1080 1320 480 Meds/Results Medications: Active Medications Generic Name Dose Route Start Last Admin Trade Name Freq PRN Reason Stop Dose Admin Acetaminophen 500 mg 08/11/20 12:02 08/16/20 11:11 Acetaminophen 500 Mg Tablet PO 500 mg Q6H PRN Administration Mild Pain (1-3) or Fever Apixaban 5 mg 08/11/20 09:00 08/17/20 08:23 Apixaban 5 Mg Tablet PO 5 mg BID AJ Administration Aspirin 81 mg 08/11/20 09:00 08/17/20 08:23 Aspirin 81 Mg Enteric Tablet PO 81 mg QAM AJ Administration Atorvastatin Calcium 40 mg 08/11/20 21:00 08/16/20 20:13 Atorvastatin 40 Mg Tablet PO 40 mg HS AJ Administration Carvedilol 6.25 mg 08/11/20 17:00 08/17/20 08:21 Carvedilol 6.25 Mg Tablet PO 6.25 mg BID AJ Administration Cilostazol 100 mg 08/11/20 21:00 08/16/20 20:13
[2020-08-17 17:16] VITALS: PULSE 77
[2020-08-17 20:00] VITALS: PULSE 77; RESP 18; O2SAT 96
[2020-08-17] MEDS: ATORVASTATIN 40 MG TABLET PO (20:21)
[2020-08-17] MEDS: cilostazoL 100 MG TABLET PO (20:21)
[2020-08-17 22:00] VITALS: BP 133/60; PULSE 78; RESP 18; TEMP 37.1; O2SAT 98
[2020-08-17] MEDS: ACETAMINOPHEN 500 MG TABLET PO (22:21)
[2020-08-18] MEDS: oxyCODONE HCL (*CRX) 5 MG TAB IR PO ×4 (04:40→21:05)
[2020-08-18] MEDS: ACETAMINOPHEN 500 MG TABLET PO ×2 (04:43→10:43)
[2020-08-18 05:20] LABS: Basophils Absolute Auto 0.1 K/mm3 (0.0-0.1); Eosinophils Absolute Auto 0.3 K/mm3 (0-0.3); Eosinophils Percent Auto 3.2 % (0-4.4); Hematocrit 27.1 % (37.0-47.0); Hemoglobin 8.4 g/dL (12.0-15.0); Immature Granulocyte Absolute 0.04 K/mm3 (0.00-0.031); Immature Granulocyte Percent A 0.5 % (0-0.5); Lymphocytes Absolute Auto 2.81 K/mm3 (0.9-3.2); Lymphocytes Percent Auto 33.7 % (18.3-44.2); Mean Corpuscular Hemoglobin 27.5 pg (26-34); Mean Corpuscular Volume 88.6 fl (80-100); Mean Platelet Volume 11.4 fl (7.4-10.4); Monocytes Absolute Auto 1.1 K/mm3 (0.1-0.6); Monocytes Percent Auto 12.8 % (2.6-8.5); Neutrophils Absolute Auto 4.1 K/mm3 (1.3-6.7); Neutrophils Percent Auto 48.8 % (45.5-73.1); Platelet Count Result 395 k/mm3 (150-375); Red Blood Count 3.06 M/mm3 (4.2-5.4); Red Cell Distribution Width 20.4 % (11.5-14.5); White Blood Count 8.4 K/mm3 (4.5-10.0)
[2020-08-18 05:39] LABS: Alanine Aminotransferase 21 U/L (4-35); Alkaline Phosphatase 76 U/L (38-126); Anion Gap 1 mmol/L (8-16); Aspartate Amino Transferase 27 U/L (14-36); Bilirubin,Total 0.2 mg/dL (0.2-1.3); Blood Urea Nitrogen 13 mg/dL (7-17); Calcium 8.3 mg/dL (8.4-10.2); Carbon Dioxide 33 mmol/L (22-30); Chloride 106 mmol/L (98-107); Estimated CRCL calculation 37 ml/min; Estimated Glomerular Filt Rate 56; Glucose 85 mg/dL (65-105); Sodium 140 mmol/L (137-145)
[2020-08-18 05:53] VITALS: BP 149/67; PULSE 76; RESP 18; TEMP 36.3; O2SAT 100
[2020-08-18] MEDS: GABAPENTIN 300 MG CAPSULE PO ×3 (05:55→21:07)
[2020-08-18 06:44] LABS: Anisocytosis 2+ (NORMAL); Hypochromasia 1+ (NORMAL); Platelet Estimate Adequate (Adequate)
[2020-08-18 06:45] LABS: Ovalocytes 1+ (NORMAL); Target Cells 1+ (NORMAL)
[2020-08-18] MEDS: RANOLAZINE 500 MG TAB.ER.12H PO (08:39)
[2020-08-18] MEDS: APIXABAN 5 MG TABLET PO ×2 (08:39→16:46)
[2020-08-18] MEDS: ASPIRIN 81 MG ENTERIC TABLET PO (08:39)
[2020-08-18 08:40] VITALS: PULSE 70
[2020-08-18] MEDS: DULoxetine HCL 30 MG CAPSULE.DR PO (08:40)
[2020-08-18] MEDS: CHOLECALCIFEROL 1,000 UNITS TABLET 1000 UNITS PO (08:40)
[2020-08-18] MEDS: carvediloL 6.25 MG TABLET PO ×2 (08:40→16:46)
[2020-08-18] MEDS: lisinopriL 2.5 MG TABLET PO (08:40)
[2020-08-18] MEDS: MULTIVITAMINS THERAPEUTIC TAB (*BKC) 1 TABLET PO (08:40)
[2020-08-18] MEDS: SENNA/DOCUSATE SODIUM TABLET 1 TAB PO ×2 (08:40→16:46)
--- NOTE | 2020-08-18 12:38 | WPDNEURORHBP ---
Subjective Date/time seen: 08/18/20 12:38 Interval history: Chief Complaint: Azra contreras The patient is a 64-year-old female with past medical history of hypertension, hyperlipidemia, chronic kidney disease, coronary artery disease, congestive heart failure, prior CVA, peripheral vascular disease, peripheral neuropathy, claudication, bilateral carotid stenosis, CSF leak, TIA, [place], hepatitis C, and Takayasu arteritis who presented to [facility] on 08/05/2020 with critical limb ischemia. On arrival the patient had no sensation to her left leg below the knee. Left foot was cold and mottled. CTA showed multiple occlusions on the left lower extremity. CT showed ischemic colitis. Patient underwent a left above knee amputation on 08/05/2020y Vascular Postoperatively the patient experienced elevated troponins, acute postop pain, acute blood loss anemia, acute respiratory failure, chronic ischemic colitis, and hypocalcemia. Cardiology determined the elevated troponins were due to demand ischemia in the setting of dehydration and anemia. She was to continue on her Coreg. A TTE showed no changes. Acute postop pain was managed with or oral analgesics. Acute blood loss was stable (hgb 9). Acute respiratory failure resolved following administration of Lasix and on 1 L oxygen but was able to wean off oxygen. General surgery was consulted for ischemic colitis and recommended conservative management with IV antibiotics and fluid She completed a course of cefepime and Flagyl and IV antibiotics were discontinued. Patient will be discharged to rehab on Eliquis and aspirin for prophylaxis and to remain on this medications. The patient was on isolation for MRSA in 2017 for the LLENayely Knox nurse practitioner of vascular department phones #[phone] patient in good spirits. Patient without complaints today Review of Systems Review of Systems: All systems reviewed & are unremarkable except as noted in HPI and below Functional Status Ambulation Ability Ability to Ambulate 10 Feet: Standby Assistance Ability to Ambulate 50 Feet With 2 Turns: Standby Assistance Ambulation Assistive Devices: Walker, Wheeled Transfers Ability Ability to Transfer In/Out of Chair: Contact Guard Exam Narrative: Exam Narrative: Patient is alert and oriented x3. Speech is fluent. Heart rate and rhythm is regular. Lungs are clear to auscultation. Abdomen is soft nontender. Incision not viewed today. Patient is seen during physical therapy going up and down a curb with min assist. Objective Data Vital Signs Vital Signs: Vital Signs - 24 hr 08/17/20 14:00 08/17/20 17:16 08/17/20 20:00 Temperature 36.3 C L Pulse Rate 77 77 77 Respiratory Rate 18 18 Blood Pressure 137/57 L Pulse Oximetry 96 96 08/17/20 22:00 08/18/20 05:53 08/18/20 08:40 Temperature 37.1 C 36.3 C L Pulse Rate 78 76 70 Respiratory Rate 18 18 Blood Pressure 133/60 149/67 H Pulse Oximetry 98 100 Intake/Output Intake/Output: Intake & Output 08/15/20 08/16/20 08/17/20 08/18/20 23:59 23:59 23:59 23:59 Intake Total 1080 1320 720 240 Balance 1080 1320 720 240 Meds/Results Medications: Active Medications Generic Name Dose Route Start Last Admin Trade Name Freq PRN Reason Stop Dose Admin Acetaminophen 500 mg 08/11/20 12:02 08/18/20 10:43 Acetaminophen 500 Mg Tablet PO 500 mg Q6H PRN Administration Mild Pain (1-3) or Fever Apixaban 5 mg 08/11/20 09:00 08/18/20 08:39 Apixaban 5 Mg Tablet PO 5 mg BID AJ Administration Aspirin 81 mg 08/11/20 09:00 08/18/20 08:39 Aspirin 81 Mg Enteric Tablet PO 81 mg QAM AJ Administration Atorvastatin Calcium 40 mg 08/11/20 21:00 08/17/20 20:21 Atorvastatin 40 Mg Tablet PO 40 mg HS AJ Administration Carvedilol 6.25 mg 08/11/20 17:00 08/18/20 08:40 Carvedilol 6.25 Mg Tablet PO 6.25 mg BID AJ Administration Cilostazol 100 mg 08/11/20 21:00 08/17/20 20:21 Ci
[2020-08-18 14:00] VITALS: BP 130/63; PULSE 77; RESP 18; TEMP 36.7; O2SAT 100
[2020-08-18 15:56] LABS: Hematocrit 27.3 % (37.0-47.0); Hemoglobin 8.3 g/dL (12.0-15.0)
[2020-08-18 16:46] VITALS: PULSE 77
[2020-08-18] MEDS: ATORVASTATIN 40 MG TABLET PO (21:06)
[2020-08-18] MEDS: cilostazoL 100 MG TABLET PO (21:08)
[2020-08-18 22:00] VITALS: BP 139/72; PULSE 86; RESP 18; TEMP 36.5; O2SAT 100
[2020-08-19 05:20] LABS: Hematocrit 28.8 % (37.0-47.0); Hemoglobin 8.8 g/dL (12.0-15.0)
[2020-08-19 05:38] VITALS: BP 150/77; PULSE 92; RESP 16; TEMP 36; O2SAT 96
[2020-08-19] MEDS: GABAPENTIN 300 MG CAPSULE PO ×3 (05:47→22:02)
[2020-08-19 08:40] VITALS: PULSE 88
[2020-08-19] MEDS: carvediloL 6.25 MG TABLET PO ×2 (08:40→17:31)
[2020-08-19] MEDS: oxyCODONE HCL (*CRX) 5 MG TAB IR PO ×3 (08:40→17:33)
[2020-08-19] MEDS: RANOLAZINE 500 MG TAB.ER.12H PO (08:40)
[2020-08-19] MEDS: DULoxetine HCL 30 MG CAPSULE.DR PO (08:40)
[2020-08-19] MEDS: SENNA/DOCUSATE SODIUM TABLET 1 TAB PO ×2 (08:40→17:32)
[2020-08-19] MEDS: MULTIVITAMINS THERAPEUTIC TAB (*BKC) 1 TABLET PO (08:40)
[2020-08-19] MEDS: lisinopriL 2.5 MG TABLET PO (08:40)
[2020-08-19] MEDS: CHOLECALCIFEROL 1,000 UNITS TABLET 1000 UNITS PO (08:40)
[2020-08-19] MEDS: APIXABAN 5 MG TABLET PO ×2 (08:40→17:33)
[2020-08-19] MEDS: ASPIRIN 81 MG ENTERIC TABLET PO (08:40)
[2020-08-19] MEDS: ACETAMINOPHEN 500 MG TABLET PO (08:41)
[2020-08-19 14:00] VITALS: BP 131/47; PULSE 92; RESP 16; TEMP 36.4; O2SAT 100
[2020-08-19 17:31] VITALS: PULSE 88
[2020-08-19] MEDS: POLYSACCHARIDE IRON COMPLEX 150 MG CAPSULE PO (17:31)
[2020-08-19 20:00] VITALS: PULSE 70; RESP 18; O2SAT 96
[2020-08-19 22:00] VITALS: BP 134/63; PULSE 70; RESP 18; TEMP 36.6; O2SAT 96
[2020-08-19] MEDS: cilostazoL 100 MG TABLET PO (22:02)
[2020-08-19] MEDS: ATORVASTATIN 40 MG TABLET PO (22:02)
[2020-08-20 05:48] VITALS: BP 140/67; PULSE 83; RESP 16; TEMP 36.1; O2SAT 97
[2020-08-20] MEDS: GABAPENTIN 300 MG CAPSULE PO ×3 (06:12→20:58)
[2020-08-20 08:16] VITALS: PULSE 78
[2020-08-20] MEDS: APIXABAN 5 MG TABLET PO ×2 (08:16→17:11)
[2020-08-20] MEDS: carvediloL 6.25 MG TABLET PO ×2 (08:16→17:12)
[2020-08-20] MEDS: MULTIVITAMINS THERAPEUTIC TAB (*BKC) 1 TABLET PO (08:16)
[2020-08-20] MEDS: POLYSACCHARIDE IRON COMPLEX 150 MG CAPSULE PO ×2 (08:16→17:11)
[2020-08-20] MEDS: SENNA/DOCUSATE SODIUM TABLET 1 TAB PO ×2 (08:16→17:12)
[2020-08-20] MEDS: RANOLAZINE 500 MG TAB.ER.12H PO (08:16)
[2020-08-20] MEDS: lisinopriL 2.5 MG TABLET PO (08:16)
[2020-08-20] MEDS: CHOLECALCIFEROL 1,000 UNITS TABLET 1000 UNITS PO (08:16)
[2020-08-20] MEDS: ASPIRIN 81 MG ENTERIC TABLET PO (08:16)
[2020-08-20] MEDS: DULoxetine HCL 30 MG CAPSULE.DR PO (08:16)
[2020-08-20] MEDS: oxyCODONE HCL (*CRX) 5 MG TAB IR PO ×4 (08:17→21:39)
--- NOTE | 2020-08-20 13:10 | WPDNEURORHBP ---
Subjective Date/time seen: 08/20/20 13:10 64 years old lady admitted to the hospital on the rehab floor subsequent to left [id number] amputation with ongoing history of 1. Hypertension 2. Hyperlipidemia 3. Chronic renal disease 4. Coronary artery disease 5. Congestive heart failure 6. Peripheral vascular disease 7. Peripheral neuropathy 8. Previous cerebrovascular accident 9. Bilateral carotid stenosis 10. Hepatitis C 11. Tack IR Flick arteritis and 12. Claudication with critical limb ischemia she underwent surgery. He has been involved in the physical therapy and occupational therapy she has been able to ambulate up to 10ft with standby assistance 50ft with 2 turns standby assistance using a wheeled walker and in and out of chair with contact guard her routine lab is consistent with anemia with hemoglobin of 8.8 and normal electrolytes Review of Systems Review of Systems: All systems reviewed & are unremarkable except as noted in HPI and below Functional Status Ambulation Ability Ability to Ambulate 10 Feet: Standby Assistance Ability to Ambulate 50 Feet With 2 Turns: Standby Assistance Ambulation Assistive Devices: Walker, Wheeled Transfers Ability Ability to Transfer In/Out of Chair: Standby Assistance Exam Const: General: cooperative, comfortable and no acute distress Nutritional Appearance: average body habitus Orientation/consciousness: oriented to person and oriented to time Limitations: physical limitations HENMT: Head: normocephalic Ears: hearing grossly normal bilaterally General nose exam: Normal external nose present Face and sinus: normal facial exam Mouth: Yes Normal oral and palatal mucosa present Eyes: General: appearance normal, both eyes and all related structures Neck: Neck: full ROM Resp: Effort & Inspection: normal respiratory effort Cardio: Rate: regular rate Rhythm: regular rhythm Skin: General skin exam: no rashes or lesions noted Neuro: General: oriented to person, oriented to place and oriented to time Cranial nerves: Yes CN's II-XII intact bilaterally Cognition (Neuro): normal cognition Gait exam (Neuro): Assisted gait required Motor exam (neuro): Pronator motor function not present and No tremor noted Sensory Exam: Sensory deficit (Neuro) Deep tendon reflexes (DTR's): Right triceps reflex intensity grade: 1+, Left triceps reflex intensity grade: 1+, Rt Biceps (C5, C6): 1+, Left biceps reflex intensity grade: 1+, Right brachioradialis reflex intensity grade: 1+, Left brachioradialis reflex intensity grade: 1+, Right patellar reflex intensity grade: 1+ and Right ankle reflex intensity grade: 1+ Plantar Reflex Responses: downgoing: right Coordination: [id number] test normal Psych: Appearance: grossly normal Objective Data Vital Signs Vital Signs: Vital Signs - 24 hr 08/19/20 14:00 08/19/20 17:31 08/19/20 20:00 Temperature 36.4 C L Pulse Rate 92 88 70 Respiratory Rate 16 18 Blood Pressure 131/47 L Pulse Oximetry 100 96 08/19/20 22:00 08/20/20 05:48 08/20/20 08:16 Temperature 36.6 C 36.1 C L Pulse Rate 70 83 78 Respiratory Rate 18 16 Blood Pressure 134/63 140/67 Pulse Oximetry 96 97 Intake/Output Intake/Output: Intake & Output 08/17/20 08/18/20 08/19/20 08/20/20 23:59 23:59 23:59 23:59 Intake Total 720 960 960 480 Balance 720 960 960 480 Meds/Results Medications: Active Medications Generic Name Dose Route Start Last Admin Trade Name Freq PRN Reason Stop Dose Admin Acetaminophen 500 mg 08/11/20 12:02 08/19/20 08:41 Acetaminophen 500 Mg Tablet PO 500 mg Q6H PRN Administration Mild Pain (1-3) or Fever Apixaban 5 mg 08/11/20 09:00 08/20/20 08:16 Apixaban 5 Mg Tablet PO 5 mg BID AJ Administration Aspirin 81 mg 08/11/20 09:00 08/20/20 08:16 Aspirin 81 Mg Enteric Tablet PO 81 mg QAM AJ Administration Atorvastatin Calcium 40 mg 08/11/20 21:00 08/19/20 22:02 Atorvastatin 40 Mg Tablet PO 40 mg HS
[2020-08-20 14:00] VITALS: BP 100/60; PULSE 76; RESP 18; TEMP 36.1; O2SAT 100
[2020-08-20 17:12] VITALS: PULSE 72
[2020-08-20] MEDS: cilostazoL 100 MG TABLET PO (20:58)
[2020-08-20] MEDS: ATORVASTATIN 40 MG TABLET PO (20:58)
[2020-08-20 21:43] VITALS: BP 99/60; PULSE 77; RESP 16; TEMP 36.1; O2SAT 95
[2020-08-21 05:38] VITALS: BP 139/68; PULSE 85; RESP 20; TEMP 36.7; O2SAT 93
[2020-08-21] MEDS: GABAPENTIN 300 MG CAPSULE PO ×3 (05:49→20:16)
[2020-08-21] MEDS: oxyCODONE HCL (*CRX) 5 MG TAB IR PO ×4 (08:14→20:16)
[2020-08-21] MEDS: lisinopriL 2.5 MG TABLET PO (08:15)
[2020-08-21 08:16] VITALS: PULSE 80
[2020-08-21] MEDS: CHOLECALCIFEROL 1,000 UNITS TABLET 1000 UNITS PO (08:16)
[2020-08-21] MEDS: carvediloL 6.25 MG TABLET PO ×2 (08:16→17:13)
[2020-08-21] MEDS: DULoxetine HCL 30 MG CAPSULE.DR PO (08:16)
[2020-08-21] MEDS: RANOLAZINE 500 MG TAB.ER.12H PO (08:16)
[2020-08-21] MEDS: APIXABAN 5 MG TABLET PO ×2 (08:17→17:11)
[2020-08-21] MEDS: MULTIVITAMINS THERAPEUTIC TAB (*BKC) 1 TABLET PO (08:17)
[2020-08-21] MEDS: POLYSACCHARIDE IRON COMPLEX 150 MG CAPSULE PO ×2 (08:17→17:13)
[2020-08-21] MEDS: ASPIRIN 81 MG ENTERIC TABLET PO (08:17)
[2020-08-21] MEDS: SENNA/DOCUSATE SODIUM TABLET 1 TAB PO ×2 (08:17→17:11)
[2020-08-21 14:00] VITALS: BP 107/52; PULSE 78; RESP 18; TEMP 36.4; O2SAT 96
[2020-08-21 17:13] VITALS: PULSE 88
[2020-08-21] MEDS: ATORVASTATIN 40 MG TABLET PO (20:16)
[2020-08-21] MEDS: cilostazoL 100 MG TABLET PO (20:16)
[2020-08-21 21:03] VITALS: BP 136/61; PULSE 77; RESP 16; TEMP 36.5; O2SAT 97
[2020-08-22] MEDS: GABAPENTIN 300 MG CAPSULE PO (05:54)
[2020-08-22] MEDS: oxyCODONE HCL (*CRX) 5 MG TAB IR PO ×2 (05:55→11:22)
[2020-08-22 05:56] VITALS: BP 99/54; PULSE 84; RESP 16; TEMP 36.2; O2SAT 97
[2020-08-22] MEDS: DULoxetine HCL 30 MG CAPSULE.DR PO (09:17)
[2020-08-22] MEDS: SENNA/DOCUSATE SODIUM TABLET 1 TAB PO (09:17)
[2020-08-22] MEDS: ASPIRIN 81 MG ENTERIC TABLET PO (09:17)
[2020-08-22] MEDS: RANOLAZINE 500 MG TAB.ER.12H PO (09:17)
[2020-08-22] MEDS: POLYSACCHARIDE IRON COMPLEX 150 MG CAPSULE PO (09:17)
[2020-08-22 09:18] VITALS: PULSE 80
[2020-08-22] MEDS: CHOLECALCIFEROL 1,000 UNITS TABLET 1000 UNITS PO (09:18)
[2020-08-22] MEDS: APIXABAN 5 MG TABLET PO (09:18)
[2020-08-22] MEDS: carvediloL 6.25 MG TABLET PO (09:18)
[2020-08-22] MEDS: MULTIVITAMINS THERAPEUTIC TAB (*BKC) 1 TABLET PO (09:18)
[2020-08-22] MEDS: lisinopriL 2.5 MG TABLET PO (09:18)
--- NOTE | 2020-08-22 10:37 | PCOTNOTE ---
Arianne Jacinto was evaluated for a bedside commode on 08/22/20 by this occupational therapist.? The bedside commode will resolve patient's inability to toilet in her own home. The patient can safely use the bedside commode. The bedside commode is required as the patient is unable to enter her bathroom using a w/c or w/w due to small bathroom size and is unsafe to walk into bathroom without a device due to a recent left above knee amputation complicated by history of CVA.
--- NOTE | 2020-08-22 10:54 | PM.DS ---
DS: Admitting Diagnosis Admitting Diagnosis Admitting Diagnosis: left above knee amputation DS: Discharge Diagnosis Discharge Diagnosis (1) Above knee amputation of left lower extremity: Code(s): S78.112A - Complete traumatic amputation at level between left hip and knee, initial encounter Status: Acute Assessment and Plan: PT will focus on transfers gait. OT will focus on ADLs from a seated and standing position. (2) Phantom pain: Code(s): G54.6 - Phantom limb syndrome with pain Status: Acute Assessment and Plan: Cymbalta 30 mg daily. Neurontin 300 mg q.8 hours. P.r.n. pain pills (3) Coronary artery disease: Code(s): I25.10 - Atherosclerotic heart disease of [place] coronary artery without angina pectoris Status: Acute Assessment and Plan: status post CABG. 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 Patient believes she will stop smoking (7) Chronic pain: Code(s): G89.29 - Other chronic pain Status: Acute (8) Peripheral arterial disease: Code(s): I73.9 - Peripheral vascular disease, unspecified Status: Acute Assessment and Plan: aspirin 81 mg daily plateau 100 mg at bedtime DS: Summary Hospital Course Hospital Course: Interval history: Chief Complaint: L aka The patient is a 64-year-old female with past medical history of hypertension, hyperlipidemia, chronic kidney disease, coronary artery disease, congestive heart failure, prior CVA, peripheral vascular disease, peripheral neuropathy, claudication, bilateral carotid stenosis, CSF leak, TIA, [place], hepatitis C, and Takayasu arteritis who presented to [facility] on 08/05/2020 with critical limb ischemia. On arrival the patient had no sensation to her left leg below the knee. Left foot was cold and mottled. CTA showed multiple occlusions on the left lower extremity. CT showed ischemic colitis. Patient underwent a left above knee amputation on 08/05/2020y Vascular Postoperatively the patient experienced elevated troponins, acute postop pain, acute blood loss anemia, acute respiratory failure, chronic ischemic colitis, and hypocalcemia. Cardiology determined the elevated troponins were due to demand ischemia in the setting of dehydration and anemia. She was to continue on her Coreg. A TTE showed no changes. Acute postop pain was managed with or oral analgesics. Acute blood loss was stable (hgb 9). Acute respiratory failure resolved following administration of Lasix and on 1 L oxygen but was able to wean off oxygen. General surgery was consulted for ischemic colitis and recommended conservative management with IV antibiotics and fluid She completed a course of cefepime and Flagyl and IV antibiotics were discontinued. Patient will be discharged to rehab on Eliquis and aspirin for prophylaxis and to remain on this medications. 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 Patient was told to use opiod sparingly. She is aware that she will receive no refills. Incision: Patient continued to have minimal serosanguineous drainage. Incision showed good approximation Stump shaping. Patient could not tolerate ampu shield for any great length of time. Edema improved but stump size fluctuated. Patient is to follow up with Surgeon ADMISSION FUNCTION: Eating was setup or clean-up assistance Oral Care was partial to moderate assist Toileting Hygiene was partial to mod
== END 2020-08-22 13:10 | disposition home health service (06) | DRG 560 ==
PROVIDERS: Admitting Provider Physical Medicine & Rehabilitation; PCP Family Medicine; Visit Provider Physical Medicine & Rehabilitation
DX: Z47.81 Encounter for orthopedic aftercare following surgical amputation (principal); I13.0 Hypertensive heart and chronic kidney disease with heart failure and stage 1 through stage 4 chronic kidney disease, or unspecified chronic kidney disease; M31.4 Aortic arch syndrome [Takayasu]; Z89.612 Acquired absence of left leg above knee; N18.9 Chronic kidney disease, unspecified; I50.9 Heart failure, unspecified; E78.5 Hyperlipidemia, unspecified; E83.51 Hypocalcemia; G62.9 Polyneuropathy, unspecified; I25.10 Atherosclerotic heart disease of native coronary artery without angina pectoris; I65.23 Occlusion and stenosis of bilateral carotid arteries; I25.2 Old myocardial infarction; F17.210 Nicotine dependence, cigarettes, uncomplicated; G54.6 Phantom limb syndrome with pain; R77.8 Other specified abnormalities of plasma proteins; Z95.5 Presence of coronary angioplasty implant and graft; Z86.14 Personal history of Methicillin resistant Staphylococcus aureus infection; Z95.1 Presence of aortocoronary bypass graft; Z86.73 Personal history of transient ischemic attack (TIA), and cerebral infarction without residual deficits
CPT/HCPCS: 36415; 80053; 85014; 85018; 85025; 93880; 97110; 97116; 97161; 97165; 97530; 97535; 97542; A9270